=== PATIENT | male | born 2000 ===

== ENCOUNTER 2022-11-28 16:09 | Emergency (ER) | payer OTHER ==
[~2022-11-28] VITALS: Ht 165.1 cm; Wt 102.3 kg
[2022-11-28] MEDS ORDERED: IBUPROFEN 600 MG TABLET PO ONE (16:30)
[2022-11-28 18:01] VITALS: BP 128/78
== END 2022-11-28 19:28 | disposition home or self-care (01) ==
LOC: EMS 16:12
DX: M79.621 Pain in right upper arm (principal); M25.521 Pain in right elbow; F17.210 Nicotine dependence, cigarettes, uncomplicated
CPT/HCPCS: 99284; 73030-TC; 73060-TC; 73070-TC; Z7502; Z7610